=== PATIENT | male | born 1940 | race Caucasian/White ===

== ENCOUNTER 2017-03-17 11:09 | Day surgery (SDC) | payer OTHER ==
[2017-03-17] MEDS ORDERED: NS 500 ML IV 500 ML IV ONE (11:30)
[2017-03-17] MEDS ORDERED: TETRACAINE 0.5% OPHTH 1 DOSE AFFEYE ONE ×6 (11:40→15:15)
[2017-03-17] MEDS ORDERED: VIGAMOX 0.5% OPHTH 1 DOSE AFFEYE ONE ×6 (11:41→15:27)
[2017-03-17] MEDS ORDERED: PROLENSA OPHTH 1 DOSE AFFEYE ONE (11:52)
[2017-03-17] MEDS ORDERED: ALPHAGAN-P OPHTH 1 DOSE AFFEYE ONE (11:53)
[2017-03-17] MEDS ORDERED: CYCLOGYL 1% OPHTH 1 DOSE OP ONE ×4 (11:54→11:57)
[2017-03-17] MEDS ORDERED: MYDRIACIL OPHTH 1 DOSE AFFEYE ONE ×4 (11:54→11:57)
[2017-03-17] MEDS ORDERED: AK-DILATE 2.5% OPHTH 1 DOSE OP ONE ×4 (11:54→11:57)
[2017-03-17] MEDS: VERSED ONE ×2 (14:25→14:41)
[2017-03-17] MEDS ORDERED: AK-DILATE 10% OPHTH 1 DOSE AFFEYE ONE (14:47)
[2017-03-17] MEDS ORDERED: BETADINE OPHTH SOLN 5% EACHEYE ONE (15:07)
[2017-03-17] MEDS ORDERED: ADRENALINE CHL INJ IJ ONE ×2 (15:09→15:15)
[2017-03-17] MEDS ORDERED: XYLOCAINE-MPF 1% IJ ONE ×2 (15:09→15:15)
[2017-03-17] MEDS ORDERED: DUOVISC IO ONE ×2 (15:10→15:15)
[2017-03-17] MEDS ORDERED: VISCOAT 0.5 ML IO ONE ×2 (15:10→15:15)
[2017-03-17] MEDS ORDERED: BSS OPHTH (PLAIN) 500 ML with VANCOMYCIN HCL 500 MG VIAL 25 MG, ADRENALINE CHL INJ 1 MG IR ONE ×6 (15:13)
[2017-03-17 15:46] VITALS: BP 123/82
== END 2017-03-17 15:54 | disposition home or self-care (01) ==
LOC: SURG1 11:09
PROVIDERS: ATTEND Ophthalmology
PROC: 08DK3ZZ Extraction of Left Lens, Percutaneous Approach (ICD-10-PCS; principal; 2017-03-17 18:45)
PROC: 08RK3JZ Replacement of Left Lens with Synthetic Substitute, Percutaneous Approach (ICD-10-PCS; principal; 2017-03-17 18:45)
DX: H25.12 Age-related nuclear cataract, left eye (principal); H25.012 Cortical age-related cataract, left eye; H52.222 Regular astigmatism, left eye
CPT/HCPCS: 99100; A4217; J0170; J2250; J3370